=== PATIENT | male | born 1990 | race African-American/Black ===

== ENCOUNTER → 2023-07-25 | Emergency (ER) | payer OTHER ==
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
[2023-07-25 23:32] VITALS: BP 148/92; TEMP 99.8; O2SAT 97
== END ==
LOC: ER 21:06
DX: S01.21XA Laceration without foreign body of nose, initial encounter (principal); S00.81XA Abrasion of other part of head, initial encounter; D72.819 Decreased white blood cell count, unspecified; R55 Syncope and collapse; Z72.0 Tobacco use; Z88.0 Allergy status to penicillin
CPT/HCPCS: 99284